=== PATIENT | male | born 1980 | race Asian ===

== ENCOUNTER 2021-01-17 04:04 | Emergency (ER) | payer BC ==
[~2021-01-17] VITALS: Ht 172.7 cm; Wt 99.8 kg
[2021-01-17] MEDS ORDERED: ACETAMINOPHEN 325 MG TAB PO ONE (05:15)
[2021-01-17 05:23] VITALS: BP 151/84
[2021-01-17] MEDS ORDERED: cefTRIAXone SOD 1,000 MG VL IM ONE (05:45)
== END 2021-01-17 06:19 | disposition home or self-care (01) ==
LOC: ER 04:11
DX: N39.0 Urinary tract infection, site not specified (principal); J02.9 Acute pharyngitis, unspecified
CPT/HCPCS: 81002

== ENCOUNTER 2021-01-18 06:54 | Emergency (ER) | payer BC ==
[~2021-01-18] VITALS: Ht 172.7 cm; Wt 99.8 kg
[2021-01-18] MEDS ORDERED: methylPREDNISolone SOD SUCC 125 MG/2 ML VL IM ONE (08:45)
[2021-01-18] MEDS ORDERED: cefTRIAXone SOD 1,000 MG VL IM ONE (08:45)
[2021-01-18 08:46] VITALS: BP 141/91
== END 2021-01-18 08:28 | disposition home or self-care (01) ==
LOC: ER 06:54
DX: J03.80 Acute tonsillitis due to other specified organisms (principal)
CPT/HCPCS: 96372; 99284; J0696; J2930